=== PATIENT | female | born 1975 | race Caucasian/White ===

== ENCOUNTER 2018-03-09 18:21 | Emergency (ER) | payer OTHER ==
[~2018-03-09] VITALS: Ht 172.7 cm; Wt 66.7 kg
[2018-03-09 18:27] VITALS: BP 123/76
--- NOTE | 2018-03-09 19:03 | NUR ---
PT AMBULATED TO BED 6
--- NOTE | 2018-03-09 19:05 | NUR ---
Patient transferred to chair B for further care. RN evaluating patient.
--- NOTE | 2018-03-09 19:10 | NUR ---
42/F presents to ED with complaints of cough x2 days. Pt also c/o chest discomfort with cough. Pt AOX4, ambulatory with steady gait. NAD noted. Pt sitting comfortably in chair B. VSS.
[2018-03-09] MEDS ORDERED: KETOROLAC 30 MG/ML VIAL IM ONE (19:15)
[2018-03-09] MEDS ORDERED: ALBUTEROL SULFATE/IPRATROPIU 3 ML SOL IH ONE (19:30)
--- NOTE | 2018-03-09 19:38 | NUR ---
RT providing breathing treatment.
[2018-03-09] MEDS ORDERED: IBUPROFEN 600 MG TAB PO ONE (19:50)
--- NOTE | 2018-03-09 20:02 | NUR ---
Influenza A/B swab sent to lab.
[2018-03-09 21:10] VITALS: BP 114/73
--- NOTE | 2018-03-09 21:10 | NUR ---
Patient discharged with v/s stable. Written and verbal after care instructions given and explained. Patient alert, oriented and verbalized understanding of instructions. Ambulatory with steady gait. All questions addressed prior to discharge. ID band removed. Patient advised to follow up with PMD. Rx of Tamiflu 75mg, Naprosyn 500mg and Guaiatussin AC 100mg-10mg/5ml given. Patient educated on indication of medication including possible reaction and side effects. Work excuse provided for today and tomorrow. Opportunity to ask questions provided and answered.
== END 2018-03-09 21:10 | disposition home or self-care (01) ==
LOC: MED 18:21
DX: J11.1 Influenza due to unidentified influenza virus with other respiratory manifestations (principal)
CPT/HCPCS: 36415; 71045; 87804; 99284; J7620; Q0092; 94640

== ENCOUNTER 2018-05-27 17:26 | Emergency (ER) | payer OTHER ==
[~2018-05-27] VITALS: Ht 167.6 cm; Wt 56.7 kg
[2018-05-27 17:37] VITALS: BP 124/61
--- NOTE | 2018-05-27 17:42 | NUR ---
PT AMBULATES TO BED 3
--- NOTE | 2018-05-27 17:43 | NUR ---
PT IS A 42 Y/O FEMALE WHO PRESENTS TO THE ED C/O RASH TO BILATERAL ARMS TODAY. PT STATES THAT IT APPEARED TODAY. PT DENIES PAIN AT THIS TIME. NOTED RASH TO BILATERAL ARMS TODAY. PT DENIES CP, SOB, N/V/D. PT AWAKE AND ALERT, RR EVEN/UNLABORED. PT AWAKE AND ALERT, RR EVEN/UNLABORED. PT REPOSITIONED FOR COMFORT, BED IN LOWEST POSITION. ER MD DR. KLEIN NOTIFIED. WILL CONTINUE TO MONITOR. PMH: NONE
[2018-05-27 18:25] VITALS: BP 138/85
--- NOTE | 2018-05-27 18:25 | NUR ---
Patient discharged with v/s stable. Written and verbal after care instructions given and explained. Patient alert, oriented and verbalized understanding of instructions. Ambulatory with steady gait. All questions addressed prior to discharge. ID band removed. Patient advised to follow up with PMD. Rx of HYDROCORTISONE 2.5% AND BENADRYL ALLERGY 25MG given. Patient educated on indication of medication including possible reaction and side effects. Opportunity to ask questions provided and answered.
== END 2018-05-27 18:25 | disposition home or self-care (01) ==
LOC: MED 17:26
DX: L50.9 Urticaria, unspecified (principal)
CPT/HCPCS: 99283

== ENCOUNTER 2022-06-23 11:49 | Emergency (ER) | payer OTHER ==
[~2022-06-23] VITALS: Ht 157.5 cm; Wt 65.8 kg
[2022-06-23 12:02] VITALS: BP 137/68
[2022-06-23] MEDS: IBUPROFEN 600 MG TAB PO ONE (12:55)
[2022-06-23] MEDS ORDERED: AMOX500C25 PO (13:32)
[2022-06-23] MEDS ORDERED: IBUP-1842 PO (13:32)
== END 2022-06-23 13:40 | disposition home or self-care (01) ==
LOC: MED 11:49
DX: J03.90 Acute tonsillitis, unspecified (principal); Z79.1 Long term (current) use of non-steroidal anti-inflammatories (NSAID); Z79.2 Long term (current) use of antibiotics
CPT/HCPCS: 87081; 99283